=== PATIENT | female | born 1975 | race Caucasian/White ===

== ENCOUNTER 2016-12-18 19:30 | Emergency (ER) | payer BC ==
[~2016-12-18] VITALS: Ht 160 cm; Wt 57.4 kg
[~2016-12-18 19:30] MED LIST: Motrin PO; Percocet 5/325,Endoc PO
[2016-12-18 20:45] LABS: ADD MIUA? YES; BILIRUBIN NEGATIVE; BLOOD MODERATE; COLOR YELLOW ((YELLOW)); GLUCOSE (STRIP) NEGATIVE; KETONES 5; LEUKOCYTES NEGATIVE; NITRITE NEGATIVE; PROTEIN (STRIP) 30; SPECIFIC GRAVITY 1.028 (1.000-1.030); UROBILINOGEN 0.2 MG/DL (0.2-1.0)
[2016-12-18 20:58] LABS: HEMATOCRIT 38.3 % (36.0-46.0); MCH 27.7 PG (29.0-34.0); MCHC 33.7 G/DL (30.0-36.0); MCV 82.2 FL (83-99); MEAN PLAT.VOLUME 10.5 uM^3 (9.5-12.4); PLATELET COUNT 304 K/uL (156-360); RBC DIS.WIDTH-CV 13.2 % (11.8-14.6); RBC DIS.WIDTH-SD 39.6 % (39-53); RED BLOOD COUNT 4.66 M/uL (3.80-5.20); WHITE BLOOD COUNT 16.4 K/uL (4.1-10.2)
[2016-12-18 21:05] LABS: CHLORIDE 107 mEq/L (99-109); POTASSIUM 3.8 mEq/L (3.7-5.4); SODIUM 141 mEq/L (136-147)
[2016-12-18 21:06] LABS: BACTERIA 1+ /HPF; EPITHELIAL CELLS RARE /HPF; MUCUS 3+ /LPF; UCUL ADDED? NO; WHITE BLOOD CELLS 0-5 /HPF (0-5)
[2016-12-18 21:07] LABS: CASTS NONE SEEN /LPF; CRYSTALS NONE SEEN
[2016-12-18 21:08] LABS: GLUCOSE 90 mg/dL (70-99)
[2016-12-18 21:09] LABS: ANION GAP 10 MEQ/L (2-14); TOTAL BILIRUBIN 0.4 mg/dL (0.0-1.0)
[2016-12-18 21:11] LABS: ALKALINE PHOSPHATASE 58 IU/L (3-129); GFR ESTIMATE (CALCULATED) > 59 mL/min/
[2016-12-18 21:12] LABS: UREA NITROGEN (BUN) 12 mg/dL (9-23)
[2016-12-18 21:13] LABS: DIRECT BILIRUBIN 0.2 mg/dL (0.0-0.3)
[2016-12-18 21:15] LABS: LIPASE 10 U/L (1.0-51.0)
[2016-12-18 21:20] LABS: QUANTITATIVE HCG < 4.0 MIU/ML
[2016-12-18] MEDS ORDERED: VANTIN100 MG PO (22:19)
[2016-12-18] MEDS ORDERED: FLAGYL500 MG PO (22:19)
[2016-12-18] MEDS ORDERED: ZOFRAN4 MG PO (22:20)
[2016-12-18 22:29] VITALS: BP 111/64
== END 2016-12-18 22:32 | disposition home or self-care (01) ==
LOC: EME 19:30
PROVIDERS: Emergency Medicine
DX: K52.9 Noninfective gastroenteritis and colitis, unspecified (principal)
CPT/HCPCS: 74176; 80048; 80076; 81003; 83690; 84702; 85027; 99281; 99284; J1885; J7030